=== PATIENT | male | born 1965 | race African-American/Black ===

== ENCOUNTER 2024-03-02 19:58 | Inpatient (IN) | payer OTHER ==
[2024-03-02 21:23] VITALS: BMI 24.6
[2024-03-02] MEDS ORDERED: guaiFENesin 600 MG TABLET.ER (FP) PO PRN (21:30)
[2024-03-02] MEDS ORDERED: NALOXONE (NARCAN) HCL 4 MG/0.1 ML SPRAY NS PRN (21:30)
[2024-03-02] MEDS ORDERED: BENZOCAINE/MENTHOL (CHLORASEPTIC ) LOZENGE MM PRN (21:30)
[2024-03-02] MEDS ORDERED: ONDANSETRON *ODT* 4 MG TABLET SL PRN (21:30)
[2024-03-02] MEDS ORDERED: DICYCLOMINE HCL 10 MG CAPSULE PO PRN (21:30)
[2024-03-02] MEDS ORDERED: IBUPROFEN 400 MG TABLET (FP) PO PRN (21:30)
[2024-03-02] MEDS ORDERED: MAG HYDROX/AL HYDROX/SIMETH 30 ML UNIT-DOSE CUP PO PRN (21:30)
[2024-03-02] MEDS ORDERED: ACETAMINOPHEN 325 MG TABLET (FP) PO PRN (21:30)
[2024-03-02] MEDS ORDERED: BENZONATATE 200 MG CAPSULE PO PRN (21:30)
[2024-03-02] MEDS ORDERED: POLYETHYLENE GLYCOL (HEALTHYLAX) 3350 17 GM PACKET PO PRN (21:30)
[2024-03-02] MEDS ORDERED: LOPERAMIDE HCL 2 MG CAPSULE PO PRN (21:30)
[2024-03-02] MEDS ORDERED: BISMUTH SUBSALICYLATE 524 MG/30 ML PO PRN (21:30)
[2024-03-02] MEDS ORDERED: MAGNESIUM HYDROX 2400MG/30ML ORAL SUSPENSION 30 ML CUP PO PRN (21:30)
[2024-03-02] MEDS ORDERED: NICOTINE POLACRILEX 2 MG GUM BUC PRN (21:31)
[2024-03-02] MEDS ORDERED: ONDANSETRON *ODT* 4 MG TABLET ONE (23:05)
[2024-03-02] MEDS ORDERED: MELATONIN 5 MG TABLETS ONE (23:05)
[2024-03-02] MEDS ORDERED: IBUPROFEN 600 MG TABLET (FP) PO ONE (23:05)
[2024-03-02] MEDS: IBUPROFEN 600 MG TABLET (FP) PO PRN (23:09)
[2024-03-02] MEDS: MELATONIN 5 MG TABLETS PO SCH (23:13)
[2024-03-02] MEDS: THIAMINE 100 MG TABLET PO SCH (23:13)
[2024-03-03] MEDS: FOLIC ACID 1 MG TABLET (FP) PO SCH (09:50)
[2024-03-03] MEDS: amLODIPine BESYLATE 10 MG TABLET (FP) PO SCH (09:50)
[2024-03-03] MEDS: PRENATAL VITAMINS W/ FOLIC ACID TABLET (FP) PO SCH (09:50)
[2024-03-03 10:43] LABS: HEMATOCRIT 35.9 % (35.4-49); HEMOGLOBIN 11.7 GM/dL (11.7-16.9); MCH 27.2 pg (25.7-33.7); MCHC 32.4 g/dl (32.0-35.9); MEAN CELL VOLUME 83.9 fl (80-96); PLATELET COUNT 177 10^3/uL (134-434); RBC 4.28 M/mm3 (4.00-5.60); RDW 18.6 % (11.9-15.9); WHITE BLOOD COUNT 8.4 K/mm3 (4.0-10.0)
[2024-03-03 10:45] LABS: CHLORIDE 106 mmol/L (98-107); POTASSIUM 3.8 mmol/L (3.5-5.1); SODIUM 139 mmol/L (136-145)
[2024-03-03 10:52] LABS: ALBUMIN 3.2 g/dl (3.4-5.0); ANION GAP 7 mmol/L (4-13); BLOOD UREA NITROGEN 13.4 mg/dL (7-18); CALCIUM 9.4 mg/dL (8.5-10.1); CO2 26 mmol/L (21-32)
[2024-03-03 10:53] LABS: GLUCOSE,RANDOM 98 mg/dL (74-106)
[2024-03-03 10:54] LABS: SGOT/AST 38 U/L (15-37); SGPT/ALT 18 U/L (13-61)
[2024-03-03 10:55] LABS: BILIRUBIN,TOTAL 0.8 mg/dL (0.2-1); TOT PROT 6.2 g/dl (6.4-8.2)
[2024-03-03 10:56] LABS: CREATININE 0.9 mg/dL (0.55-1.3)
[2024-03-03 10:57] LABS: ALK PHOS 81 U/L (45-117)
[2024-03-03] MEDS ORDERED: chlordiazePOXIDE HCL 25 MG CAPSULE PO PRN (11:24)
[2024-03-03] MEDS: METHOCARBAMOL 500 MG TABLET PO PRN (14:42)
[2024-03-03] MEDS: chlordiazePOXIDE HCL 25 MG CAPSULE PO SCH (17:37)
[2024-03-03] MEDS: ATORVASTATIN CA 20 MG TABLET (FP) PO SCH (22:30)
[2024-03-04] MEDS: chlordiazePOXIDE HCL 25 MG CAPSULE PO SCH (06:23)
[2024-03-04] MEDS: hydrOXYzine PAMOATE 25 MG CAPSULE (FP) PO PRN (21:15)
[2024-03-05] MEDS ORDERED: chlordiazePOXIDE HCL 10 MG CAPSULE PO PRN
[2024-03-05] MEDS: chlordiazePOXIDE HCL 10 MG CAPSULE PO SCH (06:11)
[2024-03-06] MEDS: chlordiazePOXIDE HCL 10 MG CAPSULE PO SCH (05:40)
[2024-03-07] MEDS: chlordiazePOXIDE HCL 10 MG CAPSULE PO ONE (05:48)
[2024-03-07 06:17] VITALS: RESP 17
[2024-03-07 09:14] VITALS: BP 136/79; PULSE 104; TEMP 96.9
== END 2024-03-07 09:17 | disposition other institution (70) | DRG 774 ==
LOC: YASAS 19:58 → Y6N 22:51
PROVIDERS: ADMIT Allergy & Immunology; ATTEND Surgery
PROC: HZ2ZZZZ Detoxification Services for Substance Abuse Treatment (ICD-10-PCS; principal; 2024-03-02)
DX: F10.230 Alcohol dependence with withdrawal, uncomplicated (principal); F14.10 Cocaine abuse, uncomplicated; F16.20 Hallucinogen dependence, uncomplicated; F12.20 Cannabis dependence, uncomplicated; F17.210 Nicotine dependence, cigarettes, uncomplicated; F19.282 Other psychoactive substance dependence with psychoactive substance-induced sleep disorder; F19.24 Other psychoactive substance dependence with psychoactive substance-induced mood disorder; E78.2 Mixed hyperlipidemia; I10 Essential (primary) hypertension; Z20.2 Contact with and (suspected) exposure to infections with a predominantly sexual mode of transmission; S62.394D Other fracture of fourth metacarpal bone, right hand, subsequent encounter for fracture with routine healing; X58.XXXD Exposure to other specified factors, subsequent encounter; Z62.810 Personal history of physical and sexual abuse in childhood; Z91.410 Personal history of adult physical and sexual abuse; Z63.8 Other specified problems related to primary support group; Z63.0 Problems in relationship with spouse or partner
CPT/HCPCS: 36415; 73110-TC-RT-FY; 73130-TC-RT-FY; 73200-TC-RT; 80053; 80307; 85027; 86593; 86780; 93005; 93010

== ENCOUNTER 2024-03-31 17:06 | Inpatient (IN) | payer OTHER ==
[2024-03-31 17:49] VITALS: BMI 25.0
[2024-03-31] MEDS ORDERED: BENZOCAINE/MENTHOL (CHLORASEPTIC ) LOZENGE MM PRN (18:13)
[2024-03-31] MEDS ORDERED: POLYETHYLENE GLYCOL (HEALTHYLAX) 3350 17 GM PACKET PO PRN (18:13)
[2024-03-31] MEDS ORDERED: ONDANSETRON *ODT* 4 MG TABLET SL PRN (18:13)
[2024-03-31] MEDS ORDERED: NICOTINE POLACRILEX 2 MG LOZENGE BC PRN (18:13)
[2024-03-31] MEDS ORDERED: IBUPROFEN 400 MG TABLET (FP) PO PRN (18:13)
[2024-03-31] MEDS ORDERED: NICOTINE POLACRILEX 2 MG GUM BUC PRN (18:13)
[2024-03-31] MEDS ORDERED: guaiFENesin 600 MG TABLET.ER (FP) PO PRN (18:13)
[2024-03-31] MEDS ORDERED: BENZONATATE 200 MG CAPSULE PO PRN (18:13)
[2024-03-31] MEDS ORDERED: MAGNESIUM HYDROX 2400MG/30ML ORAL SUSPENSION 30 ML CUP PO PRN (18:13)
[2024-03-31] MEDS ORDERED: BISMUTH SUBSALICYLATE 524 MG/30 ML PO PRN (18:13)
[2024-03-31] MEDS ORDERED: LOPERAMIDE HCL 2 MG CAPSULE PO PRN (18:13)
[2024-03-31] MEDS ORDERED: DICYCLOMINE HCL 10 MG CAPSULE PO PRN (18:13)
[2024-03-31] MEDS ORDERED: MAG HYDROX/AL HYDROX/SIMETH 30 ML UNIT-DOSE CUP PO PRN (18:13)
[2024-03-31] MEDS: ATORVASTATIN CA 20 MG TABLET (FP) PO SCH (22:44)
[2024-03-31] MEDS: THIAMINE 100 MG TABLET PO SCH (22:44)
[2024-03-31] MEDS: MELATONIN 5 MG TABLETS PO SCH (22:44)
[2024-03-31] MEDS: hydrOXYzine PAMOATE 25 MG CAPSULE (FP) PO PRN (22:46)
[2024-04-01] MEDS ORDERED: chlordiazePOXIDE HCL 25 MG CAPSULE PO PRN (09:21)
[2024-04-01] MEDS: PRENATAL VITAMINS W/ FOLIC ACID TABLET (FP) PO SCH (10:19)
[2024-04-01] MEDS: chlordiazePOXIDE HCL 25 MG CAPSULE PO SCH (10:19)
[2024-04-01] MEDS: FOLIC ACID 1 MG TABLET (FP) PO SCH (10:19)
[2024-04-01] MEDS: IBUPROFEN 600 MG TABLET (FP) PO PRN (10:23)
[2024-04-01] MEDS: METHOCARBAMOL 500 MG TABLET PO PRN (10:23)
[2024-04-02] MEDS: chlordiazePOXIDE HCL 25 MG CAPSULE PO SCH (06:00)
[2024-04-02] MEDS: ACETAMINOPHEN 325 MG TABLET (FP) PO PRN (22:57)
[2024-04-03] MEDS ORDERED: chlordiazePOXIDE HCL 10 MG CAPSULE PO PRN
[2024-04-03] MEDS: chlordiazePOXIDE HCL 10 MG CAPSULE PO SCH (05:16)
[2024-04-04] MEDS: chlordiazePOXIDE HCL 10 MG CAPSULE PO SCH (05:35)
[2024-04-04] MEDS: LORazepam 0.5 MG TABLET PO ONE (17:22)
[2024-04-05] MEDS ORDERED: chlordiazePOXIDE HCL 10 MG CAPSULE PO ONE (05:00)
[2024-04-05] MEDS: LORazepam 0.5 MG TABLET PO ONE (05:42)
[2024-04-05 09:06] VITALS: RESP 18
[2024-04-05 12:53] VITALS: BP 140/87; PULSE 80; TEMP 98.7
== END 2024-04-05 13:30 | disposition other institution (70) | DRG 774 ==
LOC: YASAS 17:06 → Y6N 19:36
PROVIDERS: ADMIT Allergy & Immunology; ATTEND Allergy & Immunology
PROC: HZ2ZZZZ Detoxification Services for Substance Abuse Treatment (ICD-10-PCS; principal; 2024-03-31)
DX: F10.230 Alcohol dependence with withdrawal, uncomplicated (principal); F14.20 Cocaine dependence, uncomplicated; F16.20 Hallucinogen dependence, uncomplicated; F12.20 Cannabis dependence, uncomplicated; F17.210 Nicotine dependence, cigarettes, uncomplicated; F19.282 Other psychoactive substance dependence with psychoactive substance-induced sleep disorder; F19.24 Other psychoactive substance dependence with psychoactive substance-induced mood disorder; E78.5 Hyperlipidemia, unspecified; I10 Essential (primary) hypertension; Z20.2 Contact with and (suspected) exposure to infections with a predominantly sexual mode of transmission; Z59.01 Sheltered homelessness
CPT/HCPCS: 73110-TC-RT-FY; 73130-TC-RT-FY; 80305; 80307; 93005; 93010